=== PATIENT | female | born 1995 | race Caucasian/White ===

== ENCOUNTER 2016-05-03 14:24 | Emergency (ER) | payer OTHER, MEDICAID ==
--- NOTE | 2016-05-03 15:20 | Emergency Department Record ---
History of Present Illness - General Chief complaint: Vomiting Stated complaint: ELEVATED TEMP/NAUSEA/DIZZINESS Time Seen by Provider: 05/03/16 15:10 Source: Patient Mode of Arrival: Ambulatory Limitations: No limitations - History of Present Illness Initial comments: 20 yo female presents with fever and vomiting. She woke up earlier today in her usual state of health. She took a mid morning nap and woke up around 11: 30am. She woke up with nausea and vomiting and fever. No diarrhea. She vomited several times. 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 She found suboxone in her home so she shot that into her right AC last night. Today the right AC is tender and swollen. No rash. MD complaint: Abdominal pain, Nausea, Vomiting, Other (Fever) -: Hour(s) Description of Vomiting: Blood-streaked Associated Abdominal Pain: No Radiation: None Quality: Aching Consistency: Intermittent Improves with: None Worsens with: None Context: Other (IVDA) Associated Symptoms: Fever/chills - Related Data Home Medications Medication Instructions Recorded Confirmed Last Taken Insulin Glargine,Hum.rec.anlog 32 unit SQ QPM 08/14/13 05/08/15 10/01/14 [Lantus] Insulin Lispro [Humalog] 10 unit SQ QID PRN 08/14/13 05/08/15 10/02/14 Levothyroxine Sodium [Levoxyl] 125 mcg PO DAILY 08/14/13 05/08/15 10/02/14 Methadone HCl 40 mg PO DAILY 05/08/15 05/08/15 05/08/15 Previous Rx's Medication Instructions Recorded Fexofenadine/Pseudoephedrine 1 each PO DAILY #30 tab.er.24h 10/02/14 [Sabine-D 24 Hour Tablet] Cephalexin [Keflex] 500 mg PO QID #30 cap 05/08/15 Allergies Allergy/AdvReac Type Severity Reaction Status Date / Time No Known Drug Allergies Allergy Verified 05/03/16 14:56 Travel Screening - Travel/Exposure Within Last 30 Days Have you traveled within the last 30 days?: No - Travel/Exposure Within Last Year Have you traveled outside the [place] in the last year?: No - Additonal Travel Details Have you been exposed to anyone with a communicable illness?: No Review of Systems Constitutional: Reports: Chills, Fever, Malaise, Weakness Eyes: Denies: Eye discharge ENT: Denies: Congestion, Throat pain Respiratory: Denies: Cough, Dyspnea, Hemoptysis, Stridor, Wheezes Cardiovascular: Reports: Palpitations. Denies: Chest pain, Syncope Endocrine: Reports: Fatigue. Denies: Polydipsia, Polyuria Gastrointestinal: Reports: Hematemesis, Nausea, Vomiting. Denies: Constipation , Diarrhea Genitourinary: Denies: Dysuria, Urgency Musculoskeletal: Denies: Arthralgia, Back pain, Myalgia, Neck pain Skin: Reports: Other (right AC tenderness and swelling). Denies: Bruising, Change in color, Rash Neurological: Denies: Confusion, Headache Psychiatric: Denies: Anxiety Hematological/Lymphatic: Denies: Blood Clots, Easy bleeding, Easy bruising, Swollen glands Past Medical History - SOCIAL HISTORY Smoking Status: Never smoker - RESPIRATORY Hx Respiratory Disorders: No - CARDIOVASCULAR Hx Cardio Disorders: No - NEURO Hx Neuro Disorders: No - GI Hx GI Disorders: Yes Hx Abdominal Pain: Yes Hx Liver Disease: Yes (hepatitis c) - Hx Genitourinary Disorders: Yes Hx UTI: Yes - ENDOCRINE Hx Endocrine Disorders: Yes Hx Diabetes: Yes (IDDM) Hx Thyroid Disease: Yes (Hypothyroid) - MUSCULOSKELETAL Hx Musculoskeletal Disorders: No - PSYCH Hx Psych Problems: No - HEMATOLOGY/ONCOLOGY Hx Hematology/Oncology Disorders: No Family Medical History Hx Alcohol Use: Mother Hx Diabetes: Father Hx HTN: Mother Physical Exam - General General Appearance: Alert, Oriented x3, Cooperative, No acute distress Limitations: No limitations - Head Head exam: Normal inspection - Eye Eye exam: Normal appearance, PERRL. negative: Conjunctival injection, Periorbital swelling - ENT ENT exam: Normal exam, Mucous membranes moist, Normal external ear exam, Normal orophraynx Ear exam: Normal external inspection. negative: External canal tenderness Nasal Exam: Normal inspection. negative: Discharge, Sinus tenderness Mouth exam: Normal external inspection, Tongue normal Teeth exam: Normal inspection. negative: Dental caries Throat exam: Normal inspection. negative: Tonsillar erythema, Tonsillar exudate - Neck Neck exam: Normal inspection, Full ROM. negative: Tenderness - Respiratory Respiratory exam: Normal lung sounds bilaterally. negative: Respiratory distress - Cardiovascular Cardiovascular Exam: Tachycardia. negative: Diastolic murmur, Systolic murmur Peripheral Pulses: 2+: Radial (R), Radial (L) - GI/Abdominal GI/Abdominal exam: Soft - Rectal Rectal exam: Deferred - exam: Deferred - Extremities Extremities exam: Normal capillary refill, Tenderness. negative: Normal inspection, Pedal edema Image of Full Body: 1 - tender AC, no fluctuance, mild swelling, no erythema - Back Back exam: Reports: Normal inspection, Full ROM. Denies: CVA tenderness (R), CVA tenderness (L), Muscle spasm, Rash noted, Tenderness - Neurological Neurological exam: Alert, Normal gait, Oriented X3, Reflexes normal - Psychiatric Psychiatric exam: Normal affect, Normal mood - Skin Skin exam: Dry, Intact, Normal color, Warm Course Vital Signs 05/03/16 14:46 Temperature 102.5 F H Pulse Rate 124 H Respiratory 20 Rate Blood Pressure 114/79 Pulse Ox 95 - Reevaluation(s) Reevaluation #1: The labs were reviewed Her WBC count was 2.0 with 67% N and 26% bands Pregancy was negative Normal BUN and CR AST 736, ALT 356 ALK 403 Bili 1.68 UDS was negative I informed the patient that she would need to be transferred given the findings Her preference is [facility] She also admits now that she has continued to do IV opiates that she gets "online" She does not know the name of the drug She denies alcohol She denies Tylenol or other OTC medications 05/03/16 17:03 05/03/16 18:21 Reevaluation #2: CXR no acute chest pathology 05/03/16 17:09 Reevaluation #3: Patient confirms she has had Hepatitis C 05/03/16 18:14 - Consultations Consultation #1: 1800 I FERNANDO Carlson of [facility] He has agreed to accept the patient for transfer She has 3 blood cultures pending She will be started on zosyn and vancomycin for her fever without source and neutropenia Medical Decision Making - Lab Data Result diagrams: 05/03/16 16:05 05/03/16 16:05 Disposition Disposition: Transfer Clinical Impression: Sepsis, Neutropenia, Elevated liver enzymes, Opiate addiction, Hepatitis C Disposition: Acute Care Hospital Transfer Transfer To: [facility] Reason For Transfer: Sepsis Accepting Physician: Dr Carlson Time Discussed w/Accepting Physician: 18:15 Condition: (3) Guarded Forms: Patient Portal Access Time of Disposition: 17:09
[2016-05-03 15:59] LABS: URINE APPEARANCE SL CLOUDY; URINE BILIRUBIN MODERATE (NEGATIVE); URINE BLOOD TRACE-I (NEGATIVE); URINE COLOR YELLOW; URINE GLUCOSE (UA) NEGATIVE (NEGATIVE); URINE LEUKOCYTE ESTERASE NEGATIVE (NEGATIVE); URINE NITRITE NEGATIVE (NEGATIVE); URINE PROTEIN TRACE (NEGATIVE)
[2016-05-03] MEDS ORDERED: ACETAMINOPHEN 500 MG TABLET PO ONE (16:01)
[2016-05-03 16:07] LABS: URINE BACTERIA 4+; URINE SQUAMOUS EPITHELIAL CELL 21 - 35 /hpf
[2016-05-03 16:14] LABS: INFLUENZA A NEGATIVE (NEGATIVE); INFLUENZA B NEGATIVE (NEGATIVE)
[2016-05-03 16:19] LABS: HEMATOCRIT 40.7 % (35.0-47.0); MEAN CELL VOLUME 83.9 fl (81-97); MEAN CORPUSCULAR HEMOGLOBIN 28.9 pg (27-33); MEAN CORPUSCULAR HGB CONC 34.4 g/dl (32-36); MEAN PLATELET VOLUME 10.4 fl (7.4-10.4); PLATELET COUNT 182 K/uL (130-400); RED BLOOD COUNT 4.85 M/uL (3.80-5.40); RED CELL DISTRIBUTION WIDTH 11.8 % (11.5-14.5)
[2016-05-03 16:25] LABS: ALB/GLOB RATIO 1.3 (1.1-1.8); ALBUMIN 4.5 gm/dL (3.5-5.0); ALKALINE PHOSPHATASE 403 U/L (38-126); ALT/SGPT 359 U/L (9-52); AST/SGOT 736 U/L (14-36); BILIRUBIN,TOTAL 1.68 mg/dL (0.2-1.3); BLOOD UREA NITROGEN 8 mg/dL (7-17); CREATININE 0.7 mg/dL (0.52-1.04); EST GLOMERULAR FILTRATION RATE > 60 ml/min; GLUCOSE,RANDOM 185 mg/dL (70-110); TOTAL PROTEIN 8.1 gm/dL (6.3-8.2)
[2016-05-03 16:41] LABS: AMPHETAMINE SCREEN URINE NOT DETECTED; BARBITURATE SCREEN URINE NOT DETECTED; BENZODIAZEPINE SCREEN URINE NOT DETECTED; COCAINE SCREEN URINE NOT DETECTED; METHADONE SCREEN URINE NOT DETECTED; METHAMPHETAMINE SCREEN NOT DETECTED; OPIATE SCREEN URINE NOT DETECTED; OXYCODONE SCREEN URINE NOT DETECTED; PHENCYCLIDINE SCREEN URINE NOT DETECTED; PROPOXYPHENE SCREEN URINE NOT DETECTED; THC SCREEN URINE NOT DETECTED; TRICYCLIC ANTIDEPRESSANT SCRN NOT DETECTED
[2016-05-03 16:44] LABS: C-REACTIVE PROTEIN 4.4 mg/dL (0.0-0.9)
[2016-05-03 16:55] LABS: ERYTHROCYTE SEDIMENTATION RATE 22 mm/hr (0-20)
[2016-05-03] MEDS ORDERED: 0.9 % SODIUM CHLORIDE 1,000 ML BAG IV ONE (17:17)
[2016-05-03 17:34] LABS: INR 1.06; PARTIAL THROMBOPLASTIN TIME 27.7 SECONDS (24.5-39.1)
[2016-05-03] MEDS ORDERED: VANCOMYCIN HCL 1,250 MG in 0.9 % SODIUM CHLORIDE 250ML 250 ML IVPB STA (17:55)
[2016-05-03] MEDS ORDERED: PIPERACILLIN SODIUM/TAZOBACTAM 4.5 GM in 0.9 % SODIUM CHLORIDE 100ML 100 ML IVPB ONE (17:57)
[2016-05-03] MEDS ORDERED: LORAZEPAM 2 MG/ML VIAL IV ONE (20:13)
--- NOTE | 2016-05-08 07:53 | RADIOLOGY REPORT ---
EXAM: CHEST, TWO VIEWS HISTORY: FEVER FOR THE PAST TWO DAYS. TECHNIQUE: PA and lateral upright views of the chest were obtained. Comparison: 09/13/13. FINDINGS: The heart, mediastinum, and pulmonary vasculature are normal. The lungs are clear. There is no pneumothorax or effusion. The bones appear intact. Bilateral nipple piercings are present. IMPRESSION: NO ACUTE CHEST PATHOLOGY. JOB NUMBER: [id number] MTDD
== END 2016-05-03 20:55 | disposition short-term general hospital (02) ==
LOC: ER 14:24
DX: A41.9 Sepsis, unspecified organism (principal); D70.9 Neutropenia, unspecified; R11.2 Nausea with vomiting, unspecified; R50.81 Fever presenting with conditions classified elsewhere; B19.20 Unspecified viral hepatitis C without hepatic coma; F11.20 Opioid dependence, uncomplicated; E11.9 Type 2 diabetes mellitus without complications; Z79.4 Long term (current) use of insulin; Z79.899 Other long term (current) drug therapy
CPT/HCPCS: 99285 ×2; 96365; 96366; 83605; 83690; 85651; 85730; 85610; 86140; 80053; 81001; 84703; 87400; 85027; 71020; G0477; G0480; J3370; 80329; J2543; J7030; J7050

== ENCOUNTER 2017-07-10 17:42 | Emergency (ER) | payer OTHER, MEDICAID ==
--- NOTE | 2017-07-10 17:54 | Emergency Department Record ---
History of Present Illness - General Chief Complaint: Dizziness Stated Complaint: DIZZINESS Time Seen by Provider: 07/10/17 17:54 Source: Patient, Family Mode of Arrival: Ambulatory - History of Present Illness Initial Comments: The patient states that she is a Type I diabetic on insulin and has been since she was 9 years old. For the past 4-5 days she has had cold symptoms with congestion coughing and cold sores. She states she has been sleeping all day long for the past 2 days. This afternoon when she got up to shower she felt her vision become blotchy and she could feel like she was going to faint, so she had to sit down on the shower floor. This happened 3-4 times, every time she attempted to get up. She states she has a history of pneumonia in the past. She has been coughing so hard that her right posterior chest hurts when she coughs. Her blood sugar prior to coming here was in the 70's. MD Complaint: Dizziness, Near syncope -: Days(s) Timing: Gradual onset Description: Lightheadedness, Off-balance History of Same: No History of Trauma: No Severity: Mild Improves With: Remaining still Worsens With: Movement Associated Symptoms: Cough - [place] Coma Scale Eye Response: (4) Open spontaneously Motor Response: (6) Obeys commands Verbal Response: (5) Oriented [place] Total: 15 - Related Data Allergies Allergy/AdvReac Type Severity Reaction Status Date / Time No Known Drug Allergies Allergy Verified 07/10/17 17:53 Travel Screening - Travel/Exposure Within Last 30 Days Have you traveled within the last 30 days?: No Review of Systems Reviewed: No additional complaints except as noted below Constitutional: Reports: As per HPI. Denies: Chills, Fever, Malaise, Night sweats, Weakness, Weight change Eyes: Reports: As per HPI. Denies: Eye discharge, Eye pain, Photophobia, Vision change ENT: Reports: As per HPI. Denies: Congestion, Dental pain, Ear pain, Epistaxis , Hearing loss, Throat pain Respiratory: Reports: As per HPI. Denies: Cough, Dyspnea, Hemoptysis, Stridor, Wheezes Cardiovascular: Reports: As per HPI. Denies: Arrhythmia, Chest pain, Dyspnea on exertion, Edema, Murmurs, Orthopnea, Palpitations, Paroxysmal nocturnal dyspnea, Rheumatic Fever, Syncope Endocrine: Reports: As per HPI. Denies: Fatigue, Heat or cold intolerance, Polydipsia, Polyuria Gastrointestinal: Reports: As per HPI. Denies: Abdominal pain, Constipation, Diarrhea, Hematemesis, Hematochezia, Melena, Nausea, Vomiting Genitourinary: Reports: As per HPI. Denies: Abnormal menses, Discharge, Dyspareunia, Dysuria, Frequency, Hematuria, Incontinence, Retention, Urgency Musculoskeletal: Reports: As per HPI. Denies: Arthralgia, Back pain, Gout, Joint swelling, Myalgia, Neck pain Skin: Reports: As per HPI. Denies: Bruising, Change in color, Change in hair/ nails, Lesions, Pruritus, Rash Neurological: Reports: As per HPI. Denies: Abnormal gait, Confusion, Headache, Numbness, Paresthesias, Seizure, Tingling, Tremors, Vertigo, Weakness Psychiatric: Reports: As per HPI. Denies: Anxiety, Auditory hallucinations, Depression, Homicidal thoughts, Suicidal thoughts, Visual hallucinations Hematological/Lymphatic: Reports: As per HPI. Denies: Anemia, Blood Clots, Easy bleeding, Easy bruising, Swollen glands Past Medical History - SOCIAL HISTORY Smoking Status: Never smoker Alcohol Use: None Drug Use: None - RESPIRATORY Hx Respiratory Disorders: Yes Hx Pneumonia: Yes - CARDIOVASCULAR Hx Cardio Disorders: No - NEURO Hx Neuro Disorders: No - GI Hx GI Disorders: Yes Hx Abdominal Pain: Yes Hx Liver Disease: Yes (hepatitis c) - Hx Genitourinary Disorders: Yes Hx UTI: Yes - ENDOCRINE Hx Endocrine Disorders: Yes Hx Diabetes: Yes (IDDM) Hx Thyroid Disease: Yes (Hypothyroid) - MUSCULOSKELETAL Hx Musculoskeletal Disorders: No Hx Arthritis: No Hx Back Injury: No Hx Fibromyalgia: No Hx Gout: No Hx Musculoskeletal Disease: No Hx Osteoporosis: No - PSYCH Hx Psych Problems: No Hx Anxiety: No Hx Behavior Problems: No Hx Depression: No Hx Emotional Abuse: No Hx Sexual Abuse: No Hx Suicide Attempt: No - HEMATOLOGY/ONCOLOGY Hx Hematology/Oncology Disorders: No Hx Anemia: No Hx Blood Disorders: No Hx Bruising: No Hx Cancer: No Hx Chemotherapy: No Hx Radiation Therapy: No Hx Clotting Problems: No Hx Sickle Cell Disease: No Hx Unexplained Bleeding: No Hx Blood Transfusions: No Hx Blood Transfusion Reaction: No Family Medical History Any Significant Family History?: Yes Hx Alcohol Use: Mother Hx Diabetes: Father Hx HTN: Mother Physical Exam - General General Appearance: Alert, Oriented x3, Cooperative, Mild distress - Head Head exam: Normal inspection - Eye Eye exam: Normal appearance, PERRL, EOMI. negative: Conjunctival injection, Nystagmus Pupils: Normal accommodation - ENT ENT exam: Normal exam, Mucous membranes dry, Normal external ear exam, Normal orophraynx, TM's normal bilaterally Ear exam: Normal external inspection. negative: External canal tenderness Nasal Exam: Normal inspection. negative: Discharge, Sinus tenderness Mouth exam: Normal external inspection, Tongue normal, Other (cold sores) Teeth exam: Normal inspection. negative: Dental caries Throat exam: Normal inspection. negative: Tonsillar erythema, Tonsillomegaly, Tonsillar exudate - Neck Neck exam: Normal inspection, Full ROM. negative: Lymphadenopathy, Meningismus , Tenderness - Respiratory Respiratory exam: Normal lung sounds bilaterally, Other (coughing episodes). negative: Respiratory distress - Cardiovascular Cardiovascular Exam: Normal rhythm, Normal heart sounds, Tachycardia - GI/Abdominal GI/Abdominal exam: Soft, Normal bowel sounds. negative: Tenderness - Rectal Rectal exam: Deferred - exam: Deferred - Extremities Extremities exam: Normal inspection, Full ROM, Normal capillary refill. negative: Calf tenderness, Pedal edema, Tenderness - Back Back exam: Reports: Normal inspection, Full ROM. Denies: Muscle spasm, Rash noted, Tenderness - Neurological Neurological exam: Alert, CN II-XII intact, Normal gait, Oriented X3, Reflexes normal. negative: Motor sensory deficit - Psychiatric Psychiatric exam: Normal affect, Normal mood - Skin Skin exam: Dry, Intact, Normal color, Warm Course Vital Signs 07/10/17 17:47 Temperature 98.0 F Pulse Rate 112 H Respiratory 18 Rate Blood Pressure 105/72 Pulse Ox 98 - Reevaluation(s) Reevaluation #1: Care turned over to Dr. Smith at 7 p.m. shift change due to pending studies and treatment. Patient aware and understands. 07/10/17 19:16 Medical Decision Making - Data Complexity MDM Data: EKG Ordered and/or Reviewed - Lab Data Result diagrams: 07/10/17 18:14 07/10/17 18:14 - EKG Data -: EKG Interpreted by Me EKG: No Acute Changes (No prior.) Disposition Clinical Impression: Postural dizziness with near syncope Forms: Patient Portal Access Quality - Quality Measures Quality Measures: N/A - Blood Pressure Screening Does Patient Have Any of the Following: No Blood Pressure Classification: Normal BP Reading Systolic Measurement: 105 Diastolic Measurement: 72 Screening for High Blood Pressure: < Normal BP, F/U Not Required > [G8783]
[2017-07-10] MEDS ORDERED: ONDANSETRON HCL IV 4 MG/2 ML VIAL IVP ONE (18:07)
[2017-07-10] MEDS ORDERED: 0.9 % SODIUM CHLORIDE 1,000 ML BAG IV ONE ×2 (18:07→18:10)
[2017-07-10 18:29] LABS: BASO % 0.5 % (0-6); EOS % 2.1 % (0-6); GRAN % 41.5 % (47-80); HEMOGLOBIN 13.5 gm/dl (11.6-16.0); LYMPH % 49.7 % (16-45); MEAN CELL VOLUME 87.3 fl (81-97); MEAN CORPUSCULAR HEMOGLOBIN 29.5 pg (27-33); MEAN CORPUSCULAR HGB CONC 33.8 g/dl (32-36); MEAN PLATELET VOLUME 10.6 fl (7.4-10.4); MONO % 6.2 % (0-9); PLATELET COUNT 170 K/uL (130-400); RED BLOOD COUNT 4.58 M/uL (3.80-5.40); RED CELL DISTRIBUTION WIDTH 11.5 % (11.5-14.5)
[2017-07-10 18:38] LABS: ALB/GLOB RATIO 1.1 (1.1-1.8); ALBUMIN 4.2 g/dL (4.0-5.0); ALKALINE PHOSPHATASE 60 U/L (35-104); ALT/SGPT 26 U/L (<33); AST/SGOT 29 U/L (10.0-35.0); BLOOD UREA NITROGEN 11 mg/dL (6-20); CREATININE 0.7 mg/dL (0.5-0.9); EST GLOMERULAR FILTRATION RATE > 60 mL/min; GLUCOSE,RANDOM 197 mg/dL (74-109); TOTAL PROTEIN 7.9 g/dL (6.6-8.7)
[2017-07-10 18:41] LABS: ACETONE,SERUM NEGATIVE (NEGATIVE)
[2017-07-10 18:43] LABS: INFLUENZA A NEGATIVE (NEGATIVE); INFLUENZA B NEGATIVE (NEGATIVE); LACTIC ACID 1.4 mmol/L (0.5-2.2)
--- NOTE | 2017-07-10 19:09 | Emergency Department Record ---
History of Present Illness - General Chief Complaint: Dizziness Stated Complaint: DIZZINESS Time Seen by Provider: 07/10/17 17:54 Source: Patient, Family Mode of Arrival: Ambulatory - History of Present Illness -: Days(s) Timing: Gradual onset Description: Lightheadedness, Off-balance History of Same: No History of Trauma: No Severity: Mild Improves With: Remaining still Worsens With: Movement Associated Symptoms: Cough - [place] Coma Scale Eye Response: (4) Open spontaneously Motor Response: (6) Obeys commands Verbal Response: (5) Oriented [place] Total: 15 - Related Data Allergies Allergy/AdvReac Type Severity Reaction Status Date / Time No Known Drug Allergies Allergy Verified 07/10/17 17:53 Travel Screening - Travel/Exposure Within Last 30 Days Have you traveled within the last 30 days?: No Review of Systems Constitutional: Reports: As per HPI. Denies: Chills, Fever, Malaise, Night sweats, Weakness, Weight change Eyes: Reports: As per HPI. Denies: Eye discharge, Eye pain, Photophobia, Vision change ENT: Reports: As per HPI. Denies: Congestion, Dental pain, Ear pain, Epistaxis , Hearing loss, Throat pain Respiratory: Reports: As per HPI. Denies: Cough, Dyspnea, Hemoptysis, Stridor, Wheezes Cardiovascular: Reports: As per HPI. Denies: Arrhythmia, Chest pain, Dyspnea on exertion, Edema, Murmurs, Orthopnea, Palpitations, Paroxysmal nocturnal dyspnea, Rheumatic Fever, Syncope Endocrine: Reports: As per HPI. Denies: Fatigue, Heat or cold intolerance, Polydipsia, Polyuria Gastrointestinal: Reports: As per HPI. Denies: Abdominal pain, Constipation, Diarrhea, Hematemesis, Hematochezia, Melena, Nausea, Vomiting Genitourinary: Reports: As per HPI. Denies: Abnormal menses, Discharge, Dyspareunia, Dysuria, Frequency, Hematuria, Incontinence, Retention, Urgency Musculoskeletal: Reports: As per HPI. Denies: Arthralgia, Back pain, Gout, Joint swelling, Myalgia, Neck pain Skin: Reports: As per HPI. Denies: Bruising, Change in color, Change in hair/ nails, Lesions, Pruritus, Rash Neurological: Reports: As per HPI. Denies: Abnormal gait, Confusion, Headache, Numbness, Paresthesias, Seizure, Tingling, Tremors, Vertigo, Weakness Psychiatric: Reports: As per HPI. Denies: Anxiety, Auditory hallucinations, Depression, Homicidal thoughts, Suicidal thoughts, Visual hallucinations Hematological/Lymphatic: Reports: As per HPI. Denies: Anemia, Blood Clots, Easy bleeding, Easy bruising, Swollen glands Past Medical History - SOCIAL HISTORY Smoking Status: Never smoker Alcohol Use: None Drug Use: None - RESPIRATORY Hx Respiratory Disorders: Yes Hx Pneumonia: Yes - CARDIOVASCULAR Hx Cardio Disorders: No - NEURO Hx Neuro Disorders: No - GI Hx GI Disorders: Yes Hx Abdominal Pain: Yes Hx Liver Disease: Yes (hepatitis c) - Hx Genitourinary Disorders: Yes Hx UTI: Yes - ENDOCRINE Hx Endocrine Disorders: Yes Hx Diabetes: Yes (IDDM) Hx Thyroid Disease: Yes (Hypothyroid) - MUSCULOSKELETAL Hx Musculoskeletal Disorders: No Hx Arthritis: No Hx Back Injury: No Hx Fibromyalgia: No Hx Gout: No Hx Musculoskeletal Disease: No Hx Osteoporosis: No - PSYCH Hx Psych Problems: No Hx Anxiety: No Hx Behavior Problems: No Hx Depression: No Hx Emotional Abuse: No Hx Sexual Abuse: No Hx Suicide Attempt: No - HEMATOLOGY/ONCOLOGY Hx Hematology/Oncology Disorders: No Hx Anemia: No Hx Blood Disorders: No Hx Bruising: No Hx Cancer: No Hx Chemotherapy: No Hx Radiation Therapy: No Hx Clotting Problems: No Hx Sickle Cell Disease: No Hx Unexplained Bleeding: No Hx Blood Transfusions: No Hx Blood Transfusion Reaction: No Family Medical History Any Significant Family History?: Yes Hx Alcohol Use: Mother Hx Diabetes: Father Hx HTN: Mother Course Vital Signs 07/10/17 07/10/17 17:47 18:45 Temperature 98.0 F 98.1 F Pulse Rate 112 H Pulse Rate [ 90 Pulse Ox Probe] Respiratory 18 18 Rate Blood Pressure 105/72 Blood Pressure 109/65 [Left Arm] Pulse Ox 98 100 - Reevaluation(s) Reevaluation #1: 07/10/17 19:04 Patient was seen and examined, updated on all results thus far and reports that she is feeling better with IVFs. Laboratory results were reviewed, AG 18, D-Dimer is elevated 0.79 ordered by previous provider. WBC 2.0 with elevated lymphocytes suggesting viral etiology. MDM: Patient denies chest or SHARI, is not hypoxia on examination, and has no history of clinical suggestion of DVT/PE as am etiology for her symptoms. Patient's symptoms have improved with IVFs, and PE is not felt to be in the differential of this patient's etiology of dizziness given her other clinical symptoms that are c/w viral syndrome and dehydration. D-dimer was ordered by the previous provider BEFORE evaluating the patient. As a result, CTA to exclude PE is not felt to be deemed necessary for mildly elevated value. I did discuss these findings with the patient as well, following a discussion of the risks and benefits of radiation exposure and the absence of clinical evidence for PE, the patient is in agreement with NOT performing CTA chest at this time. Patient's 2nd liter of NS will start to infuse soon, will evaluate following completion of infusion. EKG was reviewed and demonstrates no acute cardiac process CXR: Negative for an acute process. Reevaluation #2: 07/10/17 20:29 2nd liter has completed infusing, patient has eaten [employer] and reports that she is feeling much better. Rx for repeat CBC in 48 hours was given to the patient as well, and the patient appears stable for discharge at this time. Medical Decision Making - Lab Data Result diagrams: 07/10/17 18:14 07/10/17 18:14 Lab Results 07/10/17 07/10/17 07/10/17 Range/Units 18:14 18:14 18:14 WBC 2.0 L (4.2-12.2) K/uL RBC 4.58 (3.80-5.40) M/uL Hgb 13.5 (11.6-16.0) gm/dl Hct 40.0 (35.0-47.0) % MCV 87.3 (81-97) fl MCH 29.5 (27-33) pg MCHC 33.8 (32-36) g/dl RDW 11.5 (11.5-14.5) % Plt Count 170 (130-400) K/uL MPV 10.6 H (7.4-10.4) fl Gran % 41.5 L (47-80) % Lymphocytes % 49.7 H (16-45) % Monocytes % 6.2 (0-9) % Eosinophils % 2.1 (0-6) % Basophils % 0.5 (0-6) % D-Dimer 0.79 H (0-0.59) mg/L FEU VBG pH 7.36 (7.33-7.43) Sodium 141 (136-145) mmol/L Potassium 3.7 (3.4-4.5) mmol/L Chloride 98 (98-107) mmol/L Carbon Dioxide 25.0 (22-29) mmol/L Anion Gap 18.0 H (7-16) BUN 11 (6-20) mg/dL Creatinine 0.7 (0.5-0.9) mg/dL Estimated GFR > 60 mL/min Random Glucose 197 H (74-109) mg/dL Lactic Acid 1.4 (0.5-2.2) mmol/L Calcium 8.9 (8.6-10.0) mg/dL Total Bilirubin 0.20 (0.2-1.0) mg/dL AST 29 (10.0-35.0) U/L ALT 26 (<33) U/L Alkaline Phosphatase 60 (35-104) U/L Total Protein 7.9 (6.6-8.7) g/dL Albumin 4.2 (4.0-5.0) g/dL Globulin 3.7 (1.4-4.8) gm/dL Albumin/Globulin Ratio 1.1 (1.1-1.8) Serum HCG, Qual (NEGATIVE) Acetone, Qual Negative (NEGATIVE) Influenza Type A Ag (NEGATIVE) Influenza Type B Ag (NEGATIVE) 07/10/17 07/10/17 Range/Units 18:14 18:14 WBC (4.2-12.2) K/uL RBC (3.80-5.40) M/uL Hgb (11.6-16.0) gm/dl Hct (35.0-47.0) % MCV (81-97) fl MCH (27-33) pg MCHC (32-36) g/dl RDW (11.5-14.5) % Plt Count (130-400) K/uL MPV (7.4-10.4) fl Gran % (47-80) % Lymphocytes % (16-45) % Monocytes % (0-9) % Eosinophils % (0-6) % Basophils % (0-6) % D-Dimer (0-0.59) mg/L FEU VBG pH (7.33-7.43) Sodium (136-145) mmol/L Potassium (3.4-4.5) mmol/L Chloride (98-107) mmol/L Carbon Dioxide (22-29) mmol/L Anion Gap (7-16) BUN (6-20) mg/dL Creatinine (0.5-0.9) mg/dL Estimated GFR mL/min Random Glucose (74-109) mg/dL Lactic Acid (0.5-2.2) mmol/L Calcium (8.6-10.0) mg/dL Total Bilirubin (0.2-1.0) mg/dL AST (10.0-35.0) U/L ALT (<33) U/L Alkaline Phosphatase (35-104) U/L Total Protein (6.6-8.7) g/dL Albumin (4.0-5.0) g/dL Globulin (1.4-4.8) gm/dL Albumin/Globulin Ratio (1.1-1.8) Serum HCG, Qual Negative (NEGATIVE) Acetone, Qual (NEGATIVE) Influenza Type A Ag Negative (NEGATIVE) Influenza Type B Ag Negative (NEGATIVE) Disposition Disposition: Discharge Clinical Impression: Postural dizziness with near syncope, Dehydration Disposition: Home, Self-Care Condition: (2) Stable Instructions: Dehydration (ED) Additional Instructions: Return to ED if your symptoms worsen or if you have any concerns. Repeat CBC in 48 hours, results to Dr. Suggs. Drink plenty of fluids/rest. Forms: Patient Portal Access Time of Disposition: 20:30 Quality - Quality Measures Quality Measures: N/A - Blood Pressure Screening Does Patient Have Any of the Following: No Blood Pressure Classification: Normal BP Reading Systolic Measurement: 105 Diastolic Measurement: 72 Screening for High Blood Pressure: < Normal BP, F/U Not Required > [G8783]
[2017-07-10 19:36] LABS: URINE APPEARANCE CLEAR; URINE BILIRUBIN SMALL (NEGATIVE); URINE BLOOD MODERATE (NEGATIVE); URINE COLOR YELLOW; URINE GLUCOSE (UA) NEGATIVE (NEGATIVE); URINE LEUKOCYTE ESTERASE NEGATIVE (NEGATIVE); URINE NITRITE NEGATIVE (NEGATIVE); URINE UROBILINOGEN 0.2 E.U./dL (0.20 - 1.00)
[2017-07-10 19:37] LABS: URINE KETONE 80 mg/dL (NEGATIVE)
[2017-07-10 19:41] LABS: URINE BACTERIA FEW; URINE WBC 0 - 2 (0-2/hpf)
--- NOTE | 2017-07-12 12:25 | RADIOLOGY REPORT ---
EXAM: CHEST 2 VIEWS HISTORY: CHEST PAIN. TECHNIQUE: Frontal and lateral views of the chest. COMPARISON: Prior chest from 05/03/16. FINDINGS: The heart size is normal. The lungs are clear. No pneumothorax. IMPRESSION: NEGATIVE CHEST. JOB NUMBER: [id number] MTDD
== END 2017-07-10 20:36 | disposition home or self-care (01) ==
LOC: ER 17:42
DX: R55 Syncope and collapse (principal); R42 Dizziness and giddiness; E86.0 Dehydration; R05 Cough; R07.9 Chest pain, unspecified; E10.9 Type 1 diabetes mellitus without complications; Z79.4 Long term (current) use of insulin
CPT/HCPCS: 71046; 80053; 80061; 81001; 82009; 82800; 83036; 83605; 84443; 84703; 85025; 85027; 85379; 87400; 93005; 93010; 96360; 99284

== ENCOUNTER 2017-07-15 00:41 | Emergency (ER) | payer OTHER, MEDICAID ==
[2017-07-15 00:57] LABS: HEMATOCRIT 38.2 % (35.0-47.0); HEMOGLOBIN 13.3 gm/dl (11.6-16.0); MEAN CELL VOLUME 84.9 fl (81-97); MEAN CORPUSCULAR HEMOGLOBIN 29.6 pg (27-33); MEAN CORPUSCULAR HGB CONC 34.8 g/dl (32-36); MEAN PLATELET VOLUME 10.1 fl (7.4-10.4); PLATELET COUNT 267 K/uL (130-400); RED CELL DISTRIBUTION WIDTH 11.2 % (11.5-14.5); WHITE BLOOD COUNT W/O DIFF 5.1 K/uL (4.2-12.2)
--- NOTE | 2017-07-15 00:58 | Emergency Department Record ---
History of Present Illness - General Chief Complaint: Alcohol Intoxication Stated Complaint: INTOXICATED Time Seen by Provider: 07/15/17 00:43 Source: Patient Mode of Arrival: Wheelchair Limitations: Altered mental status - History of Present Illness Initial Comments: 21 yo female presents to ED for evaluation of nausea and vomiting resulting from alcohol intoxication. Patient reports "I just drank too much". Patient's SO reports that she has DM I, was concerned about her glucose levels. Patient and SO deny any recent fall or injury, denies headache, extremity injury or weakness, or other drug use. MD Complaint: Alcohol intoxication Last Drink: Unknown Chronic Alcohol Use: No Previous Visits for Alcohol Intoxication?: No Recent Trauma: No Associated Symptoms: Vomiting Treatments Prior to Arrival: None - Aliyah Coma Scale Eye Response: (4) Open spontaneously Motor Response: (6) Obeys commands Verbal Response: (5) Oriented Williamson Total: 15 - Related Data Allergies Allergy/AdvReac Type Severity Reaction Status Date / Time No Known Drug Allergies Allergy Verified 07/10/17 17:53 Travel Screening - Travel/Exposure Within Last 30 Days Have you traveled within the last 30 days?: No - Travel Symptoms Symptom Screening: Vomiting Review of Systems ROS unobtainable: Due to mental status Past Medical History - SOCIAL HISTORY Smoking Status: Never smoker Alcohol Use: Rare Drug Use: None - RESPIRATORY Hx Respiratory Disorders: Yes Hx Pneumonia: Yes - CARDIOVASCULAR Hx Cardio Disorders: No - NEURO Hx Neuro Disorders: No - GI Hx GI Disorders: Yes Hx Abdominal Pain: Yes Hx Liver Disease: Yes (hepatitis c) - Hx Genitourinary Disorders: Yes Hx UTI: Yes - ENDOCRINE Hx Endocrine Disorders: Yes Hx Diabetes: Yes (IDDM) Hx Thyroid Disease: Yes (Hypothyroid) - MUSCULOSKELETAL Hx Musculoskeletal Disorders: No Hx Arthritis: No Hx Back Injury: No Hx Fibromyalgia: No Hx Gout: No Hx Musculoskeletal Disease: No Hx Osteoporosis: No - PSYCH Hx Psych Problems: No Hx Anxiety: No Hx Behavior Problems: No Hx Depression: No Hx Emotional Abuse: No Hx Sexual Abuse: No Hx Suicide Attempt: No - HEMATOLOGY/ONCOLOGY Hx Hematology/Oncology Disorders: No Hx Anemia: No Hx Blood Disorders: No Hx Bruising: No Hx Cancer: No Hx Chemotherapy: No Hx Radiation Therapy: No Hx Clotting Problems: No Hx Sickle Cell Disease: No Hx Unexplained Bleeding: No Hx Blood Transfusions: No Hx Blood Transfusion Reaction: No Family Medical History Any Significant Family History?: Yes Hx Alcohol Use: Mother Hx Diabetes: Father Hx HTN: Mother Physical Exam - General General Appearance: Alert, Oriented x3, Cooperative, Other (clinically intoxicated on examination) Limitations: Altered mental status - Head Head exam: Atraumatic, Normocephalic, Normal inspection Head exam detail: negative: Abrasion, Contusion, Vicente's sign, General tenderness, Hematoma, Laceration - Eye Eye exam: Normal appearance. negative: Conjunctival injection, Periorbital swelling, Periorbital tenderness, Scleral icterus - ENT Ear exam: negative: Auricular hematoma, Auricular trauma Nasal Exam: negative: Active bleeding, Discharge, Dried blood, Foreign body Mouth exam: negative: Drooling, Laceration, Muffled voice, Tongue elevation - Neck Neck exam: Normal inspection. negative: Meningismus, Tenderness - Respiratory Respiratory exam: Normal lung sounds bilaterally. negative: Rales, Respiratory distress, Rhonchi, Stridor - Cardiovascular Cardiovascular Exam: Regular rate, Normal rhythm, Normal heart sounds - GI/Abdominal GI/Abdominal exam: Soft. negative: Rebound, Rigid, Tenderness - Rectal Rectal exam: Deferred - exam: Deferred - Extremities Extremities exam: Normal inspection. negative: Calf tenderness, Pedal edema, Tenderness - Back Back exam: Denies: CVA tenderness (R), CVA tenderness (L) - Neurological Neurological exam: Alert, Normal gait, Oriented X3 - Psychiatric Psychiatric exam: Normal affect, Normal mood - Skin Skin exam: Normal color. negative: Abrasion Type of lesion: negative: abrasion Course Vital Signs 07/15/17 00:45 Temperature 97.5 F L Pulse Rate 80 Respiratory 18 Rate Blood Pressure 140/88 Pulse Ox 99 - Reevaluation(s) Reevaluation #1: 07/15/17 01:21 Laboratory studies were reviewed, Alcohol 0.183, Glucose 363 with AG 20, CO2 23. Labs appear more consistent with AKA then DKA, will administer 8 unites of Insulin IV in addition to IVFs, and reassess laboratory studies in 1-2 hours. Reevaluation #2: 07/15/17 03:16 Repeat labs following Insulin 8 units and 2L NS: Glucose 363-133 AG improved from 20 to 17 Patient is alert, oriented, and much improved. Patient reports that she is feeling much better, appears stable for discharge at this time. Medical Decision Making - Lab Data Result diagrams: 07/15/17 00:50 07/15/17 02:40 Disposition Disposition: Discharge Clinical Impression: Hyperglycemia Alcohol intoxication Qualifiers: Complication of substance-induced condition: uncomplicated Qualified Code(s): F10.920 - Alcohol use, unspecified with intoxication, uncomplicated Disposition: Home, Self-Care Condition: (2) Stable Instructions: Alcohol Intoxication (ED) Additional Instructions: Return to ED if your symptoms worsen or if you have any concerns. Follow-up with your family doctor in 1-3 days as directed. Forms: Patient Portal Access Time of Disposition: 03:17 Quality - Quality Measures Quality Measures: N/A - Blood Pressure Screening Does Patient Have Any of the Following: No Blood Pressure Classification: Pre-Hypertensive BP Reading Systolic Measurement: 140 Diastolic Measurement: 88 Screening for High Blood Pressure: < Pre-Hypertensive BP, F/U Documented > [ G8950] Pre-Hypertensive Follow-up Interventions: Referral to alternative/primary care provider.
[2017-07-15] MEDS: 0.9 % SODIUM CHLORIDE 1000ML 1,000 ML IV SCH ×2 (01:00→01:39)
[2017-07-15] MEDS: ONDANSETRON HCL IV 4 MG/2 ML VIAL IVP ONE (01:00)
[2017-07-15 01:06] LABS: BLOOD UREA NITROGEN 12 mg/dL (6-20); CREATININE 0.7 mg/dL (0.5-0.9); EST GLOMERULAR FILTRATION RATE > 60 mL/min; TOTAL PROTEIN 7.7 g/dL (6.6-8.7)
[2017-07-15 01:07] LABS: ALCOHOL 0.183 g/dL (0-0.010)
[2017-07-15 01:08] LABS: GLUCOSE,RANDOM 363 mg/dL (74-109)
[2017-07-15 01:11] LABS: ALB/GLOB RATIO 1.3 (1.1-1.8); ALBUMIN 4.3 g/dL (4.0-5.0); ALKALINE PHOSPHATASE 61 U/L (35-104); ALT/SGPT 16 U/L (<33); AST/SGOT 22 U/L (10.0-35.0)
[2017-07-15] MEDS: HUMULIN R 100 UNIT/ML VIAL IV ONE (01:37)
[2017-07-15 03:10] LABS: BILIRUBIN,TOTAL < 0.20 mg/dL (0.2-1.0); BLOOD UREA NITROGEN 11 mg/dL (6-20); CREATININE 0.6 mg/dL (0.5-0.9); EST GLOMERULAR FILTRATION RATE > 60 mL/min
[2017-07-15 03:11] LABS: TOTAL PROTEIN 6.5 g/dL (6.6-8.7)
[2017-07-15 03:13] LABS: GLUCOSE,RANDOM 133 mg/dL (74-109)
[2017-07-15 03:15] LABS: ALB/GLOB RATIO 1.3 (1.1-1.8); ALBUMIN 3.7 g/dL (4.0-5.0); ALT/SGPT 18 U/L (<33); AST/SGOT 21 U/L (10.0-35.0)
[2017-07-15 03:16] LABS: ALKALINE PHOSPHATASE 50 U/L (35-104)
== END 2017-07-15 03:23 | disposition home or self-care (01) ==
LOC: ER 00:41
DX: E10.65 Type 1 diabetes mellitus with hyperglycemia (principal); F10.920 Alcohol use, unspecified with intoxication, uncomplicated; Y90.6 Blood alcohol level of 120-199 mg/100 ml; Z79.4 Long term (current) use of insulin
CPT/HCPCS: 99284 ×2; 96374; 96361; 80053; 36416; 82948; 85027; G0480; J2405; 80320; J7030

== ENCOUNTER 2017-11-06 18:11 | Emergency (ER) | payer OTHER, MEDICAID ==
[2017-11-06] MEDS ORDERED: 0.9 % SODIUM CHLORIDE 1,000 ML BAG IV ONE ×2 (18:37→19:17)
[2017-11-06] MEDS ORDERED: ONDANSETRON HCL IV 4 MG/2 ML VIAL IV ONE (18:37)
--- NOTE | 2017-11-06 18:40 | Emergency Department Record ---
History of Present Illness - General Chief complaint: Hypergylcemia Stated complaint: HIGH BLOOD SUGAR/ VORA VOMITING Time Seen by Provider: 11/06/17 18:34 Source: Patient Mode of Arrival: Ambulatory Limitations: No limitations - History of Present Illness Initial comments: The patient is here due to her sugar running high today. She was nauseated and did vomit once this AM. The patient believes her sugar is high due to getting intoxicated last night and not taking her evening dose of insulin. She denies any VORA, fever, chills, cough, diarrhea or AP. MD Complaint: Generalized weakness Onset/Timin -: Days(s) Location: Generalized Improves with: None Worsens with: None Associated Symptoms: Headaches, Loss of appetite, Nausea/vomiting - Aliyah Coma Scale Eye Response: (4) Open spontaneously Motor Response: (6) Obeys commands Verbal Response: (5) Oriented Aliyah Total: 15 - Related Data Home Medications Medication Instructions Recorded Confirmed Last Taken Insulin Aspart [Novolog] 1 unit SQ WMEALS 11/06/17 11/06/17 11/06/17 Insulin Glargine,Hum.rec.anlog 39 unit SQ QHS 11/06/17 11/06/17 Unknown [Lantus] Allergies Allergy/AdvReac Type Severity Reaction Status Date / Time No Known Drug Allergies Allergy Verified 11/06/17 18:26 Travel Screening - Travel/Exposure Within Last 30 Days Have you traveled within the last 30 days?: No Review of Systems Constitutional: Denies: Chills, Fever Eyes: Denies: Eye discharge ENT: Denies: Congestion Respiratory: Denies: Cough, Dyspnea Past Medical History - SOCIAL HISTORY Smoking Status: Never smoker Alcohol Use: None Drug Use: None - RESPIRATORY Hx Respiratory Disorders: Yes Hx Pneumonia: Yes - CARDIOVASCULAR Hx Cardio Disorders: No - NEURO Hx Neuro Disorders: No - GI Hx GI Disorders: Yes Hx Abdominal Pain: Yes Hx Liver Disease: Yes (hepatitis c) - Hx Genitourinary Disorders: Yes Hx UTI: Yes - ENDOCRINE Hx Endocrine Disorders: Yes Hx Diabetes: Yes (IDDM) Hx Thyroid Disease: Yes (Hypothyroid) - MUSCULOSKELETAL Hx Musculoskeletal Disorders: No Hx Arthritis: No Hx Back Injury: No Hx Fibromyalgia: No Hx Gout: No Hx Musculoskeletal Disease: No Hx Osteoporosis: No - PSYCH Hx Psych Problems: No Hx Anxiety: No Hx Behavior Problems: No Hx Depression: No Hx Emotional Abuse: No Hx Sexual Abuse: No Hx Suicide Attempt: No - HEMATOLOGY/ONCOLOGY Hx Hematology/Oncology Disorders: No Hx Anemia: No Hx Blood Disorders: No Hx Bruising: No Hx Cancer: No Hx Chemotherapy: No Hx Radiation Therapy: No Hx Clotting Problems: No Hx Sickle Cell Disease: No Hx Unexplained Bleeding: No Hx Blood Transfusions: No Hx Blood Transfusion Reaction: No Family Medical History Any Significant Family History?: Yes Hx Alcohol Use: Mother Hx Diabetes: Father Hx HTN: Mother Physical Exam - General General Appearance: Alert, Oriented x3, Cooperative, No acute distress - Head Head exam: Atraumatic, Normocephalic, Normal inspection - Eye Eye exam: Normal appearance, PERRL, EOMI - ENT Throat exam: Normal inspection. negative: Tonsillar erythema, Tonsillar exudate - Neck Neck exam: Normal inspection, Full ROM. negative: Tenderness - Respiratory Respiratory exam: Normal lung sounds bilaterally. negative: Respiratory distress - Cardiovascular Cardiovascular Exam: Regular rate, Normal rhythm, Normal heart sounds - GI/Abdominal GI/Abdominal exam: Soft, Normal bowel sounds. negative: Tenderness - Extremities Extremities exam: Normal inspection, Full ROM, Normal capillary refill. negative: Tenderness - Neurological Neurological exam: Alert, Normal gait. negative: Abnormal gait, Motor sensory deficit - Psychiatric Psychiatric exam: negative: Anxious Course Vital Signs 11/06/17 18:20 Temperature 97.6 F Pulse Rate 101 H Respiratory 18 Rate Blood Pressure 136/81 Pulse Ox 100 - Reevaluation(s) Reevaluation #1: The patient is doing a lot better at this time. She denies any nausea, vomiting , or AP and is very hungry. She is drinking fluids well. I did discuss the lab results with her and the need for the 2nd bag of IVF. 11/06/17 19:45 Reevaluation #2: The patient is doing A LOT better at this time. She is taking fluids well and appears very normal and nontoxic. I did explain to her the need for a short stay hospital admission due to the clear DKA. The patient is refusing that plan due to feeling so well and also the need to start a new job in the morning. I did explain that by NOT staying in the hospital her DKA could worsen, and she could become very ill and have a stroke, become disabled, become septic and even . The patient understands and accepts the risks. She presently has proper decision making capacity and was also instructed to return to the ER for any worsening symptoms. 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 Do NOT drink alcohol. Please see your family doctor for recheck early next week. Return to the ER for any pain, fever, nausea, vomiting, or blood sugar > 400. Forms: Patient Portal Access Time of Disposition: 20:19 Quality - Quality Measures Quality Measures: N/A - Blood Pressure Screening View Details: Yes Does Patient Have Any of the Following: No Blood Pressure Classification: Pre-Hypertensive BP Reading Systolic Measurement: 136 Diastolic Measurement: 81 Screening for High Blood Pressure: < Pre-Hypertensive BP, F/U Documented > [ G8950] Pre-Hypertensive Follow-up Interventions: Referral to alternative/primary care provider.
[2017-11-06 18:57] LABS: BASO % 0.4 % (0-6); EOS % 0.4 % (0-6); GRAN % 76.8 % (47-80); HEMATOCRIT 39.1 % (35.0-47.0); HEMOGLOBIN 13.2 gm/dl (11.6-16.0); LYMPH % 17.8 % (16-45); MEAN CELL VOLUME 87.7 fl (81-97); MEAN CORPUSCULAR HEMOGLOBIN 29.6 pg (27-33); MEAN CORPUSCULAR HGB CONC 33.8 g/dl (32-36); MEAN PLATELET VOLUME 9.9 fl (7.4-10.4); MONO % 4.6 % (0-9); PLATELET COUNT 303 K/uL (130-400); RED BLOOD COUNT 4.46 M/uL (3.80-5.40); WHITE BLOOD COUNT W/O DIFF 5.2 K/uL (4.2-12.2)
[2017-11-06 19:11] LABS: BLOOD UREA NITROGEN 15 mg/dL (6-20); EST GLOMERULAR FILTRATION RATE > 60 mL/min
[2017-11-06 19:12] LABS: TOTAL PROTEIN 7.8 g/dL (6.6-8.7)
[2017-11-06 19:14] LABS: GLUCOSE,RANDOM 383 mg/dL (74-109)
[2017-11-06 19:16] LABS: ALBUMIN 4.5 g/dL (4.0-5.0); ALKALINE PHOSPHATASE 79 U/L (35-104); ALT/SGPT 71 U/L (<33); AST/SGOT 59 U/L (10.0-35.0); BILIRUBIN,DIRECT 0.2 mg/dL (0-0.3)
[2017-11-06 19:36] LABS: ACETONE,SERUM POSITIVE (NEGATIVE)
[2017-11-06 20:03] LABS: URINE APPEARANCE CLEAR; URINE BILIRUBIN NEGATIVE (NEGATIVE); URINE BLOOD NEGATIVE (NEGATIVE); URINE COLOR YELLOW; URINE GLUCOSE (UA) >=1000 mg/dL (NEGATIVE); URINE KETONE 80 mg/dL (NEGATIVE); URINE LEUKOCYTE ESTERASE NEGATIVE (NEGATIVE); URINE NITRITE NEGATIVE (NEGATIVE); URINE PROTEIN NEGATIVE (NEGATIVE); URINE UROBILINOGEN 0.2 E.U./dL (0.20 - 1.00)
[2017-11-06] MEDS ORDERED: HUMULIN R 100 UNIT/ML VIAL SQ ONE (20:04)
[2017-11-06 20:05] LABS: HCG,QUALITATIVE URINE NEGATIVE (NEGATIVE)
== END 2017-11-06 20:30 | disposition left against medical advice (07) ==
LOC: ER 18:11
DX: E13.10 Other specified diabetes mellitus with ketoacidosis without coma (principal); R11.2 Nausea with vomiting, unspecified; R51 Headache; R53.1 Weakness; Z79.4 Long term (current) use of insulin
CPT/HCPCS: 99284 ×2; 96374; 96361; 85025; 80076; 80048; 36416; 82009; 82948; 81003; 81025; J2405; J7030

== ENCOUNTER 2019-02-21 06:39 | Observation (INO) | payer MEDICAID, OTHER ==
[2019-02-21] MEDS ORDERED: 0.9 % SODIUM CHLORIDE 1,000 ML BAG IV ONE ×2 (07:09→08:00)
[2019-02-21] MEDS ORDERED: METOCLOPRAMIDE HCL 10 MG/2 ML VIAL IVP ONE (07:13)
[2019-02-21] MEDS ORDERED: DIPHENHYDRAMINE HCL 50 MG/ML VIAL IVP ONE (07:13)
--- NOTE | 2019-02-21 07:18 | Emergency Department Record ---
History of Present Illness - General Chief complaint: Vomiting Stated complaint: NOT FEELING WELL Time Seen by Provider: 02/21/19 07:00 Source: Patient Mode of Arrival: Ambulatory Limitations: No limitations - History of Present Illness Initial comments: The patient is here due to frequent nausea and vomiting over the last 12 hours. She denies any diarrhea, fever or AP but has had some abdominal cramping since the vomiting began. The patient states she also is 6 weeks by dates but denies any pelvic cramping or bleeding. The patient is a Type I diabetic and her sugars have been running slightly high. MD complaint: Nausea, Vomiting Onset/Timin -: Hour(s) Description of Vomiting: Bilious Associated Abdominal Pain: No Radiation: None Severity: Mild Quality: Aching Improves with: None Worsens with: None Associated Symptoms: Myalgias, Nausea/vomiting, Weakness - Related Data Home Medications Medication Instructions Recorded Confirmed Last Taken Aripiprazole [Abilify] 2 mg PO DAILY 02/21/19 02/21/19 Unknown Dextroamphetamine/Amphetamine 1 tab PO DAILY 02/21/19 02/21/19 Unknown [Adderall Xr 30 mg Capsule] Insulin Degludec [Tresiba 100 unit SQ 02/21/19 Unknown Flextouch U-100] Ondansetron HCl [Zofran] 1 tab PO Q6HR PRN 02/21/19 02/21/19 Unknown Sertraline HCl [Zoloft] 50 mg PO DAILY 02/21/19 02/21/19 Unknown Allergies Allergy/AdvReac Type Severity Reaction Status Date / Time No Known Drug Allergies Allergy Unverified 12/21/17 18:40 Travel Screening - Travel/Exposure Within Last 30 Days Have you traveled within the last 30 days?: No - Travel/Exposure Within Last Year Have you traveled outside the [place] in the last year?: No - Additonal Travel Details Have you been exposed to anyone with a communicable illness?: No - Travel Symptoms Symptom Screening: Vomiting Review of Systems Constitutional: Denies: Chills, Fever Eyes: Denies: Eye discharge ENT: Denies: Congestion Respiratory: Denies: Cough, Dyspnea Cardiovascular: Denies: Arrhythmia Endocrine: Reports: Fatigue Gastrointestinal: Reports: Nausea, Vomiting. Denies: Diarrhea Genitourinary: Denies: Dysuria, Incontinence Musculoskeletal: Denies: Arthralgia Skin: Denies: Bruising Past Medical History - SOCIAL HISTORY Smoking Status: Never smoker Alcohol Use: Occasional Drug Use: None - RESPIRATORY Hx Respiratory Disorders: Yes Hx Pneumonia: Yes - CARDIOVASCULAR Hx Cardio Disorders: No - NEURO Hx Neuro Disorders: No - GI Hx GI Disorders: Yes Hx Abdominal Pain: Yes Hx Liver Disease: Yes (hepatitis c) - Hx Genitourinary Disorders: Yes Hx UTI: Yes - ENDOCRINE Hx Endocrine Disorders: Yes Hx Diabetes: Yes (IDDM) Hx Thyroid Disease: Yes (Hypothyroid) - MUSCULOSKELETAL Hx Musculoskeletal Disorders: No Hx Arthritis: No Hx Back Injury: No Hx Fibromyalgia: No Hx Gout: No Hx Musculoskeletal Disease: No Hx Osteoporosis: No - PSYCH Hx Psych Problems: No Hx Anxiety: No Hx Behavior Problems: No Hx Depression: No Hx Emotional Abuse: No Hx Sexual Abuse: No Hx Suicide Attempt: No - HEMATOLOGY/ONCOLOGY Hx Hematology/Oncology Disorders: No Hx Anemia: No Hx Blood Disorders: No Hx Bruising: No Hx Cancer: No Hx Chemotherapy: No Hx Radiation Therapy: No Hx Clotting Problems: No Hx Sickle Cell Disease: No Hx Unexplained Bleeding: No Hx Blood Transfusions: No Hx Blood Transfusion Reaction: No Family Medical History Any Significant Family History?: No Hx Alcohol Use: Mother Hx Diabetes: Father Hx HTN: Father, Mother Physical Exam - General General Appearance: Alert, Oriented x3, Cooperative, No acute distress - Head Head exam: Atraumatic, Normocephalic, Normal inspection - Eye Eye exam: Normal appearance, PERRL - ENT Throat exam: Normal inspection. negative: Tonsillar erythema, Tonsillar exudate - Neck Neck exam: Normal inspection, Full ROM. negative: Tenderness - Respiratory Respiratory exam: Normal lung sounds bilaterally. negative: Respiratory distress - Cardiovascular Cardiovascular Exam: Regular rate, Normal rhythm, Normal heart sounds - GI/Abdominal GI/Abdominal exam: Soft, Normal bowel sounds. negative: Guarding, Pulsatile mass, Rebound, Rigid, Tenderness - Extremities Extremities exam: Normal inspection, Full ROM, Normal capillary refill. negative: Tenderness - Neurological Neurological exam: Alert, Normal gait. negative: Abnormal gait, Motor sensory deficit - Skin Skin exam: negative: Rash Course Vital Signs 02/21/19 06:47 Temperature 97.8 F Pulse Rate [ 109 H Right] Respiratory 20 Rate Blood Pressure 115/71 [Left Arm] Pulse Ox 99 - Reevaluation(s) Reevaluation #1: The patient is feeling better at this time and denies any pain or discomfort. I did discuss the lab results with the patient and the need for a short stay admission due to the mild DKA. The patient understands and accept the plan. I then did discuss the case with Dr. Suggs and he does accept the admission. 02/21/19 08:07 Medical Decision Making - Lab Data Result diagrams: 02/21/19 07:17 02/21/19 07:17 Disposition Disposition: Admit Clinical Impression: Diabetic ketoacidosis Qualifiers: Diabetes mellitus type: type 1 Diabetes mellitus complication detail: without coma Qualified Code(s): E10.10 - Type 1 diabetes mellitus with ketoacidosis without coma Disposition: Still a Patient at [facility] Decision to Admit: Admit from ER Decision to Admit Date: 02/21/19 Decision to Admit Time: 08:11 Accepting Physician: Ifeanyi Time Discussed w/Accepting Physician: 08:11 Condition: (2) Stable Time of Disposition: 08:11 Quality - Quality Measures Quality Measures: N/A - Blood Pressure Screening View Details: Yes Does Patient Have Any of the Following: No Blood Pressure Classification: Normal BP Reading Systolic Measurement: 99 Diastolic Measurement: 66 Screening for High Blood Pressure: < Normal BP, F/U Not Required > [G8783]
[2019-02-21 07:31] LABS: ABSOLUTE NEUTROPHIL COUNT 2.41; HEMATOCRIT 41.1 % (35.0-47.0); HEMOGLOBIN 13.9 gm/dl (11.6-16.0); MEAN CELL VOLUME 88.6 fl (81-97); MEAN CORPUSCULAR HGB CONC 33.8 g/dl (32-36); MEAN PLATELET VOLUME 9.9 fl (7.4-10.4); PLATELET COUNT 323 K/uL (130-400); RED BLOOD COUNT 4.64 M/uL (3.80-5.40); RED CELL DISTRIBUTION WIDTH 11.7 % (11.5-14.5); URINE APPEARANCE CLEAR; URINE BILIRUBIN MODERATE (NEGATIVE); URINE BLOOD NEGATIVE (NEGATIVE); URINE COLOR YELLOW; URINE KETONE 40 mg/dL (NEGATIVE); URINE LEUKOCYTE ESTERASE NEGATIVE (NEGATIVE); URINE NITRITE NEGATIVE (NEGATIVE); URINE PROTEIN NEGATIVE (NEGATIVE); URINE UROBILINOGEN 0.2 E.U./dL (0.20 - 1.00); WHITE BLOOD COUNT W/O DIFF 2.9 K/uL (4.2-12.2)
[2019-02-21 07:42] LABS: ACETONE,SERUM SMALL (NEGATIVE)
[2019-02-21 07:52] LABS: BLOOD UREA NITROGEN 15 mg/dL (6-20)
[2019-02-21 07:53] LABS: CREATININE 0.7 mg/dL (0.5-0.9); EST GLOMERULAR FILTRATION RATE > 60 mL/min; LIPASE 7 U/L (13-60); TOTAL PROTEIN 8.2 g/dL (6.6-8.7)
[2019-02-21 07:55] LABS: GLUCOSE,RANDOM 271 mg/dL (74-109)
[2019-02-21 07:58] LABS: ALBUMIN 4.6 g/dL (4.0-5.0); ALKALINE PHOSPHATASE 74 U/L (35-104); ALT/SGPT 22 U/L (<33); AST/SGOT 23 U/L (10.0-35.0); BILIRUBIN,DIRECT 0.2 mg/dL (0-0.3)
[2019-02-21 08:00] LABS: TOTAL B-hCG 32834 mIU/mL
[2019-02-21 08:55] LABS: AMPHETAMINE SCREEN URINE DETECTED; BARBITURATE SCREEN URINE NOT DETECTED; BENZODIAZEPINE SCREEN URINE NOT DETECTED; COCAINE SCREEN URINE NOT DETECTED; METHADONE SCREEN URINE NOT DETECTED; METHAMPHETAMINE SCREEN NOT DETECTED; OPIATE SCREEN URINE NOT DETECTED; OXYCODONE SCREEN URINE NOT DETECTED; PHENCYCLIDINE SCREEN URINE NOT DETECTED; PROPOXYPHENE SCREEN URINE NOT DETECTED; THC SCREEN URINE NOT DETECTED; TRICYCLIC ANTIDEPRESSANT SCRN NOT DETECTED
--- NOTE | 2019-02-21 09:35 | History & Physical ---
History of Present Illness - Date of Service Date of Service for History & Physical: 02/21/19 - History of Present Illness History of Present Illness: Ms. Muller is a 23 y/o female with acute nausea and vomiting since yesterday. The patient says that she had several episodes of non-bilous, non-bloody vomiting but denies abdominal pain. The patient says that her boyfriend was sick with a stomach bug and he came to the ED on Thursday with complaint if diarrhea, nausea and vomiting. She says that they cannot recall eating anything unusual and have not been around any sick contacts. The patient is a diabetic and takes Tresiba and Novolog which she says controls her diabetes well. The patient is 6 weeks conformed by ultrasound and says that she has not had any pregnancies before. ED course: Vitals: BP 115/71, HR 109, RR 20, T97, Sats 99% RA. The patient was started on Reglan, Zofran and Benadryl and admitted for observation. Her labs show hyperglycemia with mild decreases in bicarb and increase in anion gap. PCP : Travel Screening - Travel/Exposure Within Last 30 Days Have you traveled within the last 30 days?: No - Travel/Exposure Within Last Year Have you traveled outside the [place] in the last year?: No - Additonal Travel Details Have you been exposed to anyone with a communicable illness?: No - Travel Symptoms Symptom Screening: Joint & Muscle Aches, Weakness, Vomiting, Lack of Appetite, Chills Review of Systems Constitutional: Denies: Chills, Fever Eyes: Denies: Eye discharge ENT: Denies: Congestion Respiratory: Denies: Cough, Dyspnea Cardiovascular: Denies: Arrhythmia Endocrine: Reports: Fatigue Gastrointestinal: Reports: Nausea, Vomiting. Denies: Diarrhea Genitourinary: Denies: Dysuria, Incontinence Musculoskeletal: Denies: Arthralgia Skin: Denies: Bruising Past Medical History - SOCIAL HISTORY Smoking Status: Never smoker Alcohol Use: Occasional Drug Use: None - RESPIRATORY Hx Respiratory Disorders: Yes Hx Pneumonia: Yes - CARDIOVASCULAR Hx Cardio Disorders: No - NEURO Hx Neuro Disorders: No - GI Hx GI Disorders: Yes Hx Abdominal Pain: Yes Hx Liver Disease: Yes (hepatitis c) - Hx Genitourinary Disorders: Yes Hx UTI: Yes - ENDOCRINE Hx Endocrine Disorders: Yes Hx Diabetes: Yes (IDDM) Hx Thyroid Disease: Yes (Hypothyroid) - MUSCULOSKELETAL Hx Musculoskeletal Disorders: No Hx Arthritis: No Hx Back Injury: No Hx Fibromyalgia: No Hx Gout: No Hx Musculoskeletal Disease: No Hx Osteoporosis: No - PSYCH Hx Psych Problems: No Hx Anxiety: No Hx Behavior Problems: No Hx Depression: No Hx Emotional Abuse: No Hx Sexual Abuse: No Hx Suicide Attempt: No - HEMATOLOGY/ONCOLOGY Hx Hematology/Oncology Disorders: No Hx Anemia: No Hx Blood Disorders: No Hx Bruising: No Hx Cancer: No Hx Chemotherapy: No Hx Radiation Therapy: No Hx Clotting Problems: No Hx Sickle Cell Disease: No Hx Unexplained Bleeding: No Hx Blood Transfusions: No Hx Blood Transfusion Reaction: No Family Medical History Any Significant Family History?: No Hx Alcohol Use: Mother Hx Diabetes: Father Hx HTN: Father, Mother H&P Meds/Allergies - Allergies Allergies: Allergies Allergy/AdvReac Type Severity Reaction Status Date / Time No Known Drug Allergies Allergy Unverified 12/21/17 18:40 - Home Medications Home Medications Medication Instructions Recorded Confirmed Last Taken Aripiprazole [Abilify] 2 mg PO DAILY 02/21/19 02/21/19 02/20/19 Dextroamphetamine/Amphetamine 1 tab PO DAILY 02/21/19 02/21/19 02/20/19 [Adderall Xr 30 mg Capsule] Insulin Degludec [Tresiba 100 unit SQ 02/21/19 Unknown Flextouch U-100] Ondansetron HCl [Zofran] 1 tab PO Q6HR PRN 02/21/19 02/21/19 Unknown Sertraline HCl [Zoloft] 50 mg PO DAILY 02/21/19 02/21/19 02/20/19 Physical Exam - Vital Signs Vital Signs: Vital Signs - Last 24 Hrs Temp Pulse Resp BP Pulse Ox 02/21/19 07:54 102 H 18 99/66 100 02/21/19 06:47 97.8 F 109 H 20 115/71 99 - General General Appearance: Alert, Oriented x3, Cooperative, No acute distress Limitations: No limitations - Head Head exam: Atraumatic, Normocephalic, Normal inspection - Eye Eye exam: Normal appearance, PERRL - ENT Throat exam: Normal inspection. negative: Tonsillar erythema, Tonsillar exudate - Neck Neck exam: Normal inspection, Full ROM. negative: Tenderness - Respiratory Respiratory exam: Normal lung sounds bilaterally. negative: Respiratory distress - Cardiovascular Cardiovascular Exam: Regular rate, Normal rhythm, Normal heart sounds Peripheral Pulses: 3+: Radial (R), Radial (L), Dorsalis Pedis (R), Dorsalis Pedis (L) - GI/Abdominal GI/Abdominal exam: Soft, Normal bowel sounds. negative: Guarding, Pulsatile mass, Rebound, Rigid, Tenderness - Extremities Extremities exam: Normal inspection, Full ROM, Normal capillary refill. negative: Tenderness - Neurological Neurological exam: Alert, Normal gait. negative: Abnormal gait, Motor sensory deficit - Skin Skin exam: negative: Rash Results - Labs Result Diagrams: 02/21/19 07:17 02/21/19 07:17 Labs Last 24 Hours: Laboratory Results - last 24 hr 02/21/19 02/21/19 02/21/19 07:17 07:17 07:17 WBC 2.9 L RBC 4.64 Hgb 13.9 Hct 41.1 MCV 88.6 MCH 30.0 MCHC 33.8 RDW 11.7 Plt Count 323 MPV 9.9 Neutrophils % 85.0 H Eosinophils % Not Reportable Basophils % Not Reportable Absolute Neutrophils 2.41 Lymphocytes 11.0 L Monocytes 3.0 Eosinophil Count 1.0 Sodium 135 L Potassium 4.0 Chloride 95 L Carbon Dioxide 20.0 L Anion Gap 20.0 H BUN 15 Creatinine 0.7 Estimated GFR > 60 Random Glucose 271 H Calcium 9.3 Total Bilirubin 0.90 Direct Bilirubin 0.2 AST 23 ALT 22 Alkaline Phosphatase 74 Total Protein 8.2 Albumin 4.6 Lipase 7 L Total Beta HCG 87020 Urine Color Yellow Urine Appearance Clear Urine pH 6.0 Ur Specific [place] 1.025 Urine Protein Negative Urine Glucose (UA) 500 mg/dl H Urine Ketones 40 mg/dl H Urine Blood Negative Urine Nitrite Negative Urine Bilirubin Moderate H Urine Urobilinogen 0.2 Ur Leukocyte Esterase Negative Urine Opiates Screen Ur Oxycodone Screen Urine Methadone Screen Ur Propoxyphene Screen Ur Barbituates Screen Ur Tricyclics Screen Ur Phencyclidine Scrn Ur Amphetamine Screen U Methamphetamines Scrn U Benzodiazepines Scrn Urine Cocaine Screen Urine Cannabis Screen Acetone, Qual Small 02/21/19 07:25 WBC RBC Hgb Hct MCV MCH MCHC RDW Plt Count MPV Neutrophils % Eosinophils % Basophils % Absolute Neutrophils Lymphocytes Monocytes Eosinophil Count Sodium Potassium Chloride Carbon Dioxide Anion Gap BUN Creatinine Estimated GFR Random Glucose Calcium Total Bilirubin Direct Bilirubin AST ALT Alkaline Phosphatase Total Protein Albumin Lipase Total Beta HCG Urine Color Urine Appearance Urine pH Ur Specific [place] Urine Protein Urine Glucose (UA) Urine Ketones Urine Blood Urine Nitrite Urine Bilirubin Urine Urobilinogen Ur Leukocyte Esterase Urine Opiates Screen Not detected Ur Oxycodone Screen Not detected Urine Methadone Screen Not detected Ur Propoxyphene Screen Not detected Ur Barbituates Screen Not detected Ur Tricyclics Screen Not detected Ur Phencyclidine Scrn Not detected Ur Amphetamine Screen Detected U Methamphetamines Scrn Not detected U Benzodiazepines Scrn Not detected Urine Cocaine Screen Not detected Urine Cannabis Screen Not detected Acetone, Qual VTE H&P Assessment - Risk for VTE Risk for VTE: Yes Risk Level: Moderate Risk Assessment Date: 02/21/19 Risk Assessment Time: 12:24 VTE Orders Placed or Will Be Placed: Yes Plan - Detailed Diagnosis and Plan (1) Nausea & vomiting Current Visit: Yes Status: Acute Base Code: R11.2 - NAUSEA WITH VOMITING, UNSPECIFIED Comment: 02/21/19: - Continue with Zofran 4mg Q4H PRN, Reglan 10mg Q6H PRN and Benadryl 25mg Q6H. - Clear liquids and advance diet as tolerated. (2) Hyperglycemia due to type 1 diabetes mellitus Current Visit: Yes Status: Acute Base Code: E10.65 - TYPE 1 DIABETES MELLITUS WITH HYPERGLYCEMIA Comment: 02/21/19: - serum glucose 271, 295, 226 - anion gap 20, bicarb 20 - start long acting insulin at 15 units since patient eating minimally. Sliding scale low dose ordered. - Accuchecks AcHS - ADA diet when tolerated. (3) and not yet delivered in first trimester Current Visit: Yes Status: Acute Base Code: Z34.91 - ENCNTR FOR SUPRVSN OF NORMAL PREG, UNSP, FIRST TRIMESTER Comment: 02/21/19: - G1,P0, 6 weeks - HCG 28742 - Tight glycemic control needed. (4) ADHD Current Visit: Yes Status: Acute Base Code: F90.9 - ATTENTION-DEFICIT HYPERACTIVITY DISORDER, UNSPECIFIED TYPE Comment: 02/21/19: - Pt takes Aderaal daily - Amphetamines in UDS (5) Back pain Current Visit: Yes Status: Acute Base Code: M54.9 - DORSALGIA, UNSPECIFIED Comment: 02/21/19: - Toradol 15mg one time only - Heating pad ordered.
[2019-02-21] MEDS ORDERED: 0.9 % SODIUM CHLORIDE 1000ML 1,000 ML IV ONE (09:52)
[2019-02-21] MEDS ORDERED: DIPHENHYDRAMINE HCL 50 MG/ML VIAL IVP PRN (09:52)
[2019-02-21] MEDS ORDERED: METOCLOPRAMIDE HCL 10 MG/2 ML VIAL IVP PRN (09:52)
[2019-02-21] MEDS ORDERED: ONDANSETRON HCL IV 4 MG/2 ML VIAL IVP PRN (09:52)
[2019-02-21] MEDS ORDERED: ACETAMINOPHEN 325 MG TAB PO PRN (09:52)
[2019-02-21] MEDS ORDERED: KETOROLAC 30 MG/ML VIAL IVP ONE (12:18)
[2019-02-21] MEDS ORDERED: LEVEMIR FLEXTOUCH 100 UNIT/ML INSULIN PEN SQ ONE (13:03)
--- NOTE | 2019-02-21 13:19 | Discharge Summary ---
Providers Discharge Summary Date: 02/21/19 Date of admission: 02/21/19 08:49 Attending physician: SRUTHI RODRIGUEZ Primary care physician: ELLIE DUMONT N.P. Physical Exam - Vital Signs Vital Signs: Vital Signs - Last 24 Hrs Temp Pulse Pulse Resp BP BP Pulse Ox 02/21/19 11:45 99.3 F 118 H 17 112/49 98 02/21/19 09:39 114 H 102 H 18 02/21/19 09:00 99.4 F 114 H 17 129/64 100 02/21/19 07:54 102 H 18 99/66 100 02/21/19 06:47 97.8 F 109 H 20 115/71 99 - General General Appearance: Alert, Oriented x3, Cooperative, No acute distress Limitations: No limitations - Head Head exam: Atraumatic, Normocephalic, Normal inspection - Eye Eye exam: Normal appearance, PERRL - ENT Throat exam: Normal inspection. negative: Tonsillar erythema, Tonsillar exudate - Neck Neck exam: Normal inspection, Full ROM. negative: Tenderness - Respiratory Respiratory exam: Normal lung sounds bilaterally. negative: Respiratory distress - Cardiovascular Cardiovascular Exam: Regular rate, Normal rhythm, Normal heart sounds Peripheral Pulses: 3+: Radial (R), Radial (L), Dorsalis Pedis (R), Dorsalis Pedis (L) - GI/Abdominal GI/Abdominal exam: Soft, Normal bowel sounds. negative: Guarding, Pulsatile mass, Rebound, Rigid, Tenderness - Extremities Extremities exam: Normal inspection, Full ROM, Normal capillary refill. negative: Tenderness - Neurological Neurological exam: Alert, Normal gait. negative: Abnormal gait, Motor sensory deficit - Skin Skin exam: negative: Rash Hospitalization - Hospitalization Admission Diagnosis: 1. Acute DKA - Problem List/Discharge Diagnosis (1) Nausea & vomiting Status: Acute Base Code: R11.2 - NAUSEA WITH VOMITING, UNSPECIFIED Comment: 02/21/19: resolved - Continue with Zofran 4mg Q4H PRN, Reglan 10mg Q6H PRN and Benadryl 25mg Q6H. - Clear liquids and advance diet as tolerated. The patient was advanced to full liuids then full ADA diet by afternoon. (2) Hyperglycemia due to type 1 diabetes mellitus Status: Acute Base Code: E10.65 - TYPE 1 DIABETES MELLITUS WITH HYPERGLYCEMIA Comment: 02/21/19: - serum glucose 271, 295, 226 - anion gap 20-->16, bicarb 20 -->19 - start long acting insulin at 15 units since patient eating minimally. Sliding scale low dose ordered. - Accuchecks AcHS - ADA diet when tolerated. (3) and not yet delivered in first trimester Status: Acute Base Code: Z34.91 - ENCNTR FOR SUPRVSN OF NORMAL PREG, UNSP, FIRST TRIMESTER Comment: 02/21/19: - G1,P0, 6 weeks - HCG 10916 - Tight glycemic control needed. (4) ADHD Status: Acute Base Code: F90.9 - ATTENTION-DEFICIT HYPERACTIVITY DISORDER, UNSPECIFIED TYPE Comment: 02/21/19: - Pt takes Aderaal daily - Amphetamines in UDS (5) Back pain Status: Acute Base Code: M54.9 - DORSALGIA, UNSPECIFIED Comment: 02/21/19: - Toradol 15mg one time only - Heating pad ordered. - Hospitalization Course Disposition: Home, Self-Care Hospital Course: Ms. Muller is a 23 y/o female with acute nausea and vomiting since yesterday. The patient says that she had several episodes of non-bilous, non-bloody vomiting but denies abdominal pain. The patient says that her boyfriend was sick with a stomach bug and he came to the ED on Thursday with complaint if diarrhea, nausea and vomiting. She says that they cannot recall eating anything unusual and have not been around any sick contacts. The patient is a diabetic and takes Tresiba and Novolog which she says controls her diabetes well. The patient is 6 weeks conformed by ultrasound and says that she has not had any pregnancies before. ED course: Vitals: BP 115/71, HR 109, RR 20, T97, Sats 99% RA. The patient was started on Reglan, Zofran and Benadryl and admitted for observation. Her labs show hyperglycemia with mild decreases in bicarb and increase in anion gap. On review in the afternoon the patient's symptoms had resolved and her diet was able to be advanced. She was administered 8 units insulin Novolog and repeat labs showed increased serum glucose but anion gap closed. PCP : Abnormal Labs: Abnormal Lab Results 02/21/19 02/21/19 02/21/19 Range/Units 07:17 07:17 07:17 WBC 2.9 L (4.2-12.2) K/uL Neutrophils % 85.0 H (47-80) % Lymphocytes 11.0 L (16-45) % Sodium 135 L (136-145) mmol/L Chloride 95 L (98-107) mmol/L Carbon Dioxide 20.0 L (22-29) mmol/L Anion Gap 20.0 H (7-16) POC Glucose (70-110) mg/dL Random Glucose 271 H (74-109) mg/dL Lipase 7 L (13-60) U/L Urine Glucose (UA) 500 mg/dl H (NEGATIVE) Urine Ketones 40 mg/dl H (NEGATIVE) Urine Bilirubin Moderate H (NEGATIVE) 02/21/19 02/21/19 Range/Units 10:22 11:47 WBC (4.2-12.2) K/uL Neutrophils % (47-80) % Lymphocytes (16-45) % Sodium (136-145) mmol/L Chloride (98-107) mmol/L Carbon Dioxide (22-29) mmol/L Anion Gap (7-16) POC Glucose 226 H 295 H (70-110) mg/dL Random Glucose (74-109) mg/dL Lipase (13-60) U/L Urine Glucose (UA) (NEGATIVE) Urine Ketones (NEGATIVE) Urine Bilirubin (NEGATIVE) Condition at Discharge: (2) Stable Discharge Medications - Discharge Medications Home Medications: Ambulatory Orders Insulin Aspart [Novolog] 1 unit SQ WMEALS 11/06/17 [Last Taken 11/06/17] Aripiprazole [Abilify] 2 mg PO DAILY 02/21/19 [Last Taken 02/20/19] Dextroamphetamine/Amphetamine [Adderall Xr 30 mg Capsule] 1 tab PO DAILY 02/21/19 [Last Taken 02/20/19] Insulin Degludec [Tresiba Flextouch U-100] 100 unit SQ 02/21/19 [Last Taken Unk nown] Ondansetron HCl [Zofran] 1 tab PO Q6HR PRN 02/21/19 [Last Taken Unknown] Sertraline HCl [Zoloft] 50 mg PO DAILY 02/21/19 [Last Taken 02/20/19] Discharge Plan - Discharge Instructions Diet at Discharge: Advance to Usual Diet Instructions: Nausea and Vomiting in (GEN), Diabetic Ketoacidosis (DC), Diabetes and (GEN) Additional Instructions: Follow up with your primary doctor this week Quality Measures - Quality Measures Quality Measures: Documentation of Current Medications in Medical Record, Screening for High Blood Pressure and F/U Documented - Current Medications Quality Measure: Measure #130: Documentation of Current Medications Documentation of Current Medications: <Current Medications Documented/Reviewed> [[id number]] - Blood Pressure Screening Quality Measure: Screening for High Blood Pressure and Follow-Up Documented Does Patient Have Any of the Following: No Blood Pressure Classification: Normal BP Reading Systolic Measurement: 118 Diastolic Measurement: 54 Screening for High Blood Pressure: < Normal BP, F/U Not Required > [G8783] - Elder Abuse Suspicion Index EASI Reference Information: Travis PULIDO, Pascual C, Vickie D, Chidi Rock.Development and validation of a tool to assist physicians identification of elder abuse: The Elder Abuse Suspicion Index (EASI ). Journal of Elder Abuse and Neglect, 2008; 20 (3): 276-300.
[2019-02-21 16:19] LABS: BLOOD UREA NITROGEN 10 mg/dL (6-20); CREATININE 0.6 mg/dL (0.5-0.9); EST GLOMERULAR FILTRATION RATE > 60 mL/min; GLUCOSE,RANDOM 316 mg/dL (74-109)
[2019-02-21] MEDS ORDERED: NOVOLOG FLEXPEN (INSULIN ASPART) 100 UNITS/ML SQ SCH (17:15)
[2019-02-21] MEDS ORDERED: LEVEMIR FLEXTOUCH 100 UNIT/ML INSULIN PEN SQ SCH (22:00)
== END 2019-02-21 17:12 | disposition home or self-care (01) ==
LOC: ER 06:39 → MEDSURG 08:49
PROVIDERS: ADMIT Internal Medicine; ATTEND Internal Medicine
DX: E10.10 Type 1 diabetes mellitus with ketoacidosis without coma (principal); Z79.4 Long term (current) use of insulin; E03.9 Hypothyroidism, unspecified; B19.20 Unspecified viral hepatitis C without hepatic coma; F90.9 Attention-deficit hyperactivity disorder, unspecified type; Z33.1 Pregnant state, incidental; M54.9 Dorsalgia, unspecified; Z90.49 Acquired absence of other specified parts of digestive tract
CPT/HCPCS: 36416; 80048; 80076; 80305; 81003; 82009; 82948; 83690; 84702; 85027; 96374; 96375; 99220; 99285; J1200; J1885; J2405; J2765; J7030